=== PATIENT | male | born 1985 | race Two or more races ===

== ENCOUNTER 2022-12-12 12:36 | Emergency (ER) | payer OTHER ==
[~2022-12-12] VITALS: Ht 162.6 cm; Wt 81.1 kg
[2022-12-12 13:06] VITALS: BP 140/75
[2022-12-12] MEDS ORDERED: TETANUS-DIPTH-ACEL PERTUSSIS 0.5ML SYR Tdap IM ONE (13:15)
== END 2022-12-12 13:35 | disposition home or self-care (01) ==
LOC: ER 12:36
DX: S51.812A Laceration without foreign body of left forearm, initial encounter (principal); W26.0XXA Contact with knife, initial encounter; Y93.89 Activity, other specified; Y92.89 Other specified places as the place of occurrence of the external cause; Y99.8 Other external cause status
CPT/HCPCS: 12001; 90471; 90715